=== PATIENT | female | born 2000 | race Caucasian/White ===

== ENCOUNTER 2019-01-19 23:36 | Emergency (ER) | payer MEDICAID ==
[~2019-01-19] VITALS: Ht 157.5 cm; Wt 61.1 kg
[2019-01-19 23:39] VITALS: Ht 157.5 cm; Wt 61.1 kg
[2019-01-20] MEDS ORDERED: KETOROLAC 30 MG INJ IM STA (02:53)
[2019-01-20] MEDS ORDERED: ONDANSETRON (ODT) 4 MG TAB ODT STA (02:53)
--- NOTE | 2019-01-20 02:53 | ERD ---
ER Documentation Chief Complaint Chief Complaint c/o mid epigastric pain since 9pm tonight. +nausea HPI There is a 18-year-old female presents to emerge department with complaints of epigastric pain. Stated it started this night around 9 PM, while playing basketball, tripped, fell in a pole, hitting her epigastric area. LMP: Stated it was last week. . Stated it was last week. Denies headache, head injury, loss of consciousness, dizziness, neck pain, neck stiffness, throat pain, difficulty swallowing, difficulty breathing lying flat, shoulder pain, chest pain, back pain, abdominal pain, nausea, vomiting, constipation, diarrhea, urinary symptoms, or possibility being pregna nt, loss of bowel and bladder control, trauma, injury, falls, difficulty walking due to pain, numbness or tingling sensation, calf pain, recent travel, recent major surgery in the last 3 weeks, calf pain, recent long travel, recent exposure to any illness, recent antibiotic use in the last 3 months, fever, chills, seizures. Past medical history: Surgical history: Social: Denies smoking, use of alcoholic beverages, use of illegal drugs. ROS All systems reviewed and are negative except as per history of present illness. Medications Home Meds Active Scripts Ibuprofen* (Motrin*) 600 Mg Tab, 600 MG PO Q6H PRN for PAIN AND OR ELEVATED TEMP, #30 TAB Prov:SHANTEKUSHALROLANDOAR F 01/20/19 Cephalexin* (Keflex*) 500 Mg Capsule, 500 MG PO QID for 5 Days, CAP Prov:PASILABAN,KLAR F 01/20/19 Allergies Allergies: Coded Allergies: No Known Drug Allergy (Verified Allergy, Unknown, 01/19/19) PMhx/Soc Medical and Surgical Hx: pt denies Medical Hx, pt denies Surgical Hx Hx Alcohol Use: No Hx Substance Use: No Hx Tobacco Use: No Smoking Status: Never smoker Physical Exam Vitals Physical Exam Const: No acute distress Head: Atraumatic Eyes: Normal Conjunctiva ENT: Normal External Ears, Nose and Mouth. Neck: Full range of motion. No meningismus. Resp: Clear to auscultation bilaterally. Chest area: Examined with female green building energy engineer, Lata LEON. No crepitus. No deformities. No vesicular lesions. No signs of punctured lungs. Cardio: Regular rate and rhythm, no murmurs Abd: Soft, non tender, non distended. Normal bowel sounds Skin: No petechiae or rashes Back: No midline or flank tenderness Ext: No cyanosis, or edema Neur: Awake and alert. No neurological deficit. Psych: Normal Mood and Affect Results 24 hrs Laboratory Tests Test 01/20/19 02:53 01/20/19 03:16 Urine Color YELLOW Urine Clarity SLIGHTLY CLOUDY Urine pH 6.0 Urine Specific [place] 1.023 Urine Ketones NEGATIVE mg/dL Urine Nitrite NEGATIVE mg/dL Urine Bilirubin NEGATIVE mg/dL Urine Urobilinogen 1+ mg/dL Urine Leukocyte Esterase 1+ Melani/ul Urine Microscopic RBC 2 /HPF Urine Microscopic WBC 4 /HPF Urine Squamous Epithelial Cells FEW /HPF Urine Hemoglobin NEGATIVE mg/dL Urine Glucose NEGATIVE mg/dL Urine Total Protein NEGATIVE mg/dl POC Beta HCG, Qualitative NEGATIVE Current Medications Medications Dose Sig/Ragh[place]da Start Time Status Last (Trade) Ordered Route PRN Stop Time Admin Dose Reason Admin Ondansetron 4 mg ONCE STAT 01/20/19 DC 01/20/19 HCl (Zofran ODT 02:53 01/20/19 03:34 Odt) 02:54 Ketorolac 30 mg ONCE STAT 01/20/19 DC 01/20/19 Tromethamine IM 02:53 01/20/19 03:35 (Toradol) 02:54 Famotidine 20 mg ONCE ONCE 01/20/19 DC 01/20/19 (Pepcid) PO 03:00 01/20/19 03:34 03:01 Procedures/MDM Diagnostic tests: POC urine : Negative. Urinalysis: Leukocyte esterase 1+. Chest x-ray: No evidence of active cardiopulmonary disease. Treatment: Toradol. Pepcid. Zofran. Re-evaluation: Denies chest pain, back pain. No episode of emesis here in emergency department. Not in distress. Differential diagnosis I have low suspicion for rib fractures, punctured lungs, hemothorax, pneumothorax. Final diagnosis: UTI. Chest contusion. Prescription: Motrin. Keflex. Follow-up with PCP in the next 24-48 hours. Come back here in the emergency department for any new symptoms or any worsening symptoms. All questions and concerns were answered. Patient and family members verbalized understanding and agreed with plan of care. Hemodynamically stable on discharge. Departure Diagnosis: Primary Impression: Chest wall contusion Additional Impression: UTI (urinary tract infection) Condition: Stable Additional Instructions: Follow-up with PCP in the next 24-48 hours. Come back here in the emergency department for any new symptoms or any worsening symptoms. MAHAMED HUNTER Jan 20, 2019 02:53
[2019-01-20] MEDS ORDERED: FAMOTIDINE 20 MG TAB PO ONE (03:00)
[2019-01-20] MEDS ORDERED: CEPH-443 PO (04:02)
[2019-01-20] MEDS ORDERED: IBUP-1542 PO (04:03)
[2019-01-20 05:17] VITALS: BP 111/60; PULSE 81; RESP 20
== END 2019-01-20 05:18 | disposition home or self-care (01) ==
LOC: FTE 23:36
DX: S20.219A Contusion of unspecified front wall of thorax, initial encounter (principal); N39.0 Urinary tract infection, site not specified; W01.0XXA Fall on same level from slipping, tripping and stumbling without subsequent striking against object, initial encounter; Y92.310 Basketball court as the place of occurrence of the external cause
CPT/HCPCS: 71046; 81001; 81025; 96372; J1885; Z7502; Z7610